=== PATIENT | female | born 1980 ===

== ENCOUNTER 2023-04-22 00:04 | Emergency (ER) | payer MEDICAID | END 2023-04-22 03:43 | disposition left against medical advice (07) | LOC: ER 00:06 | DX: Z04.3 Encounter for examination and observation following other accident (principal); Z53.21 Procedure and treatment not carried out due to patient leaving prior to being seen by health care provider; W19.XXXA Unspecified fall, initial encounter; Y93.89 Activity, other specified; Y92.89 Other specified places as the place of occurrence of the external cause; Y99.8 Other external cause status ==